=== PATIENT | female | born 1955 | race Caucasian/White ===

== ENCOUNTER 2018-05-21 12:27 | Emergency (ER) | payer MEDICARE ==
--- NOTE | 2018-05-21 13:00 | ER Document Report ---
ED Medical Screen (RME) - General Chief Complaint: Abdominal Pain Stated Complaint: ABDOMINAL PAIN Time Seen by Provider: 05/21/18 12:57 TRAVEL OUTSIDE OF THE [place] IN LAST 30 DAYS: No - HPI Notes: 05/21/18 12:57 Patient is a 62-year-old female with a history of hypertension, cholecystectomy, partial hysterectomy (ovaries remain), ovarian cysts, diverticulosis who presents the emergency department complaining of right lower quadrant abdominal pain. She was seen at urgent care and she was sent here as they her unsure of ovarian cyst versus appendicitis. Patient states that this pain has been ongoin g for the past week and is described as a mild sharp pain. The pain does not radiate. She is eating and drinking without difficulty. She is urinating normally. No vaginal discharge, odor, or bleeding. Denies FREITAS, fever, neck pain, URI, CP, SOB, vomiting, or rash. I have treated and performed a rapid initial assessment of this patient. A comprehensive ED assessment and evaluation of the patient, analysis of test results and completion of medical decision making process will be conducted by additional ED providers. Will defer imaging to next provider that can more thoroughly abd eval. PHYSICAL EXAMINATION: GENERAL: Well-appearing, well-nourished and in no acute distress. A&Ox4. Answers questions appropriately. LUNGS: Breath sounds clear to auscultation bilaterally and equal. No wheezes rales or rhonchi. HEART: Regular rate and rhythm without murmurs, rubs, gallops. ABDOMEN: Soft, nondistended abdomen. No guarding, no rebound. Normal bowel sounds present. No CVA tenderness bilaterally. + mild tenderness rt lower abd (cannot elicit thorough abd exam w/o table, however). Extremities: No cyanosis, clubbing, or edema b/l. NEUROLOGICAL: Normal speech, normal gait. PSYCH: Normal mood, normal affect. Physical Exam - Vital signs Vitals: Temp Pulse Resp BP Pulse Ox 98.1 F 81 16 128/77 H 98 05/21/18 12:38 05/21/18 12:38 05/21/18 12:38 05/21/18 12:38 05/21/18 12:38 Course - Vital Signs Vital signs: Temp Pulse Resp BP Pulse Ox 98.1 F 81 16 128/77 H 98 05/21/18 12:38 05/21/18 12:38 05/21/18 12:38 05/21/18 12:38 05/21/18 12:38
[2018-05-21 13:28] LABS: APPEARANCE,URINE CLEAR; BILIRUBIN,URINE NEGATIVE (NEGATIVE); COLOR,URINE YELLOW; GLUCOSE, URINE NEGATIVE (NEGATIVE); KETONES,URINE NEGATIVE (NEGATIVE); LEUKOCYTE ESTERASE,URINE NEGATIVE (NEGATIVE); NITRITE,URINE NEGATIVE (NEGATIVE); PROTEIN,URINE NEGATIVE (NEGATIVE); URINE SPECIFIC GRAVITY 1.018; UROBILINOGEN,URINE NEGATIVE mg/dL (<2.0)
[2018-05-21 14:47] LABS: ABSOLUTE EOSINOPHILS # (AUTO) 0.1 10^3/uL (0.0-0.6); ABSOLUTE LYMPHOCYTES (AUTO) 1.9 10^3/uL (0.5-4.7); ABSOLUTE MONOCYTES (AUTO) 0.6 10^3/uL (0.1-1.4); ABSOLUTE NEUT (AUTO) 5.4 10^3/uL (1.7-8.2); BASOPHILS % (AUTO) 0.6 % (0-2); EOSINOPHILS % (AUTO) 1.4 % (0-6); HEMATOCRIT 41.7 % (36.0-47.0); HEMOGLOBIN 14.3 g/dL (12.0-15.5); LYMPHOCYTES % (AUTO) 23.2 % (13-45); MEAN CORPUSCULAR HEMOGLOBIN 29.9 pg (27.0-33.4); MEAN CORPUSCULAR HGB CONC 34.4 g/dL (32.0-36.0); MEAN CORPUSCULAR VOLUME 87 fl (80-97); MONOCYTES % (AUTO) 7.7 % (3-13); PLATELET COUNT 255 10^3/uL (150-450); RED CELL DISTRIBUTION WIDTH 13.4 % (11.5-14.0); SEGMENTED NEUTROPHILS % (AUTO) 67.1 % (42-78); TOTAL CELLS COUNTED % (AUTO) 100 %
[2018-05-21 15:08] LABS: ALANINE AMINOTRANSFERASE 40 U/L (9-52); ALBUMIN 4.5 g/dL (3.5-5.0); ALKALINE PHOSPHATASE 65 U/L (38-126); ANION GAP 8 (5-19); ASPARTATE AMINO TRANSFERASE 41 U/L (14-36); BILIRUBIN,DIRECT 0.5 mg/dL (0.0-0.4); BILIRUBIN,TOTAL 0.9 mg/dL (0.2-1.3); BLOOD UREA NITROGEN 19 mg/dL (7-20); CALCIUM 10.1 mg/dL (8.4-10.2); CARBON DIOXIDE 28 mmol/L (22-30); CHLORIDE 107 mmol/L (98-107); GLUCOSE 86 mg/dL (75-110); POTASSIUM 3.9 mmol/L (3.6-5.0); SODIUM 142.7 mmol/L (137-145); TOTAL PROTEIN 7.9 g/dL (6.3-8.2)
--- NOTE | 2018-05-21 15:40 | ER Document Report ---
ED General - General Chief Complaint: Abdominal Pain Stated Complaint: ABDOMINAL PAIN Time Seen by Provider: 05/21/18 12:57 TRAVEL OUTSIDE OF THE [place] IN LAST 30 DAYS: No - HPI Notes: Patient is a 62-year-old female who presents to the emergency department for evaluation of abdominal pain. Is been present for about a week. It waxes and wanes in severity never completely goes away. She states she has had some nausea but no emesis. She remarks mildly diminished appetite. She has had some loose bowel movements. She states it feels somewhat similar to her diverticulitis, but she usually gets that on the left side. She denies any dysuria or hematuria. No vaginal discharge. No vaginal bleeding. No known fevers. Past Medical History - General Information source: Patient - Social History Smoking Status: Never Smoker Chew tobacco use (# tins/day): No Frequency of alcohol use: None Drug Abuse: None Family History: Reviewed & Not Pertinent Patient has suicidal ideation: No Patient has homicidal ideation: No - Past Medical History Cardiac Medical History: Reports: Hx Hypertension Renal/ Medical History: Denies: Hx Peritoneal Dialysis GI Medical History: Reports: Hx Gastroesophageal Reflux Disease Past Surgical History: Reports: Hx Cholecystectomy, Hx Hysterectomy Review of Systems - Review of Systems Constitutional: Malaise EENT: No symptoms reported Cardiovascular: No symptoms reported Respiratory: No symptoms reported Gastrointestinal: No symptoms reported, See HPI Genitourinary: No symptoms reported Female Genitourinary: No symptoms reported Musculoskeletal: No symptoms reported Skin: No symptoms reported Neurological/Psychological: No symptoms reported Physical Exam - Vital signs Vitals: Temp Pulse Resp BP Pulse Ox 98.1 F 81 16 128/77 H 98 05/21/18 12:38 05/21/18 12:38 05/21/18 12:38 05/21/18 12:38 05/21/18 12:38 - Notes Notes: Vital signs reviewed, please refer to chart. Patient is normocephalic, atraumatic. Pupils equal round, reactive to light. Neck is supple without meningismus. Heart is regular rate and rhythm. Lungs are clear to auscultation bilaterally. Abdomen is soft, with moderate right lower quadrant tenderness. No pelvic tenderness. No rebound or guarding. Negative Rovsing's. Extremities without cyanosis, clubbing, edema. Peripheral pulses are equal. Skin is warm and dry. Patient is awake, alert, neurological exam is nonfocal. Course - Re-evaluation Re-evalutation: 05/21/18 15:39 Patient presents to the emergency department for evaluation. Her pain does appear to originate more from the intestines rather than the pelvic organs. She is moderate tenderness. This combined with nausea does have me somewhat concerned for the possibility of appendicitis. Certainly diverticulitis remains on the list, but it is unlikely given this location. Laboratory investigations were ordered and found to be largely unremarkable. Oral and IV contrast CT of the abdomen and pelvis was ordered, patient is pending that exam. We will continue to follow. 05/21/18 18:08 Serial abdominal exams performed. She is tender still, but certainly nonsurgical. CT scan of the abdomen pelvis failed to reveal any acute findings. She already knew about the left ovarian cyst, and this is the opposite side of her symptoms. She has had a colonoscopy, states she believed it to be about 3 y ears ago. At this point I recommend she follow-up with gastroenterology. She understands that if she develops any worsening or new concerning symptoms of any sort, she needs to return to the emergency department for further evaluation. - Vital Signs Vital signs: Temp Pulse Resp BP Pulse Ox 98.1 F 76 18 124/73 98 05/21/18 16:43 05/21/18 16:43 05/21/18 16:43 05/21/18 16:43 05/21/18 16:43 - Laboratory Result Diagrams: 05/21/18 14:17 05/21/18 14:17 Laboratory results interpreted by me: 05/21/18 14:17 Direct Bilirubin 0.5 H AST 41 H - Diagnostic Test Radiology reviewed: Reports reviewed - Ovarian cyst on the left, otherwise no acute findings. Discharge - Discharge Clinical Impression: Right lower quadrant abdominal pain Condition: Stable Disposition: HOME, SELF-CARE Instructions: Abdominal Pain ([facility]) Additional Instructions: No clear reason was found for your abdominal pain today. Follow-up with your primary care physician next week, and consider follow-up with gastroenterology. Return to the emergency department with worsening or new concerning symptoms of any sort.
--- NOTE | 2018-05-21 17:37 | RADIOLOGY REPORT (SQ) ---
EXAM DESCRIPTION: CT ABD/PELVIS WITH IV ORAL COMPLETED DATE/TIME: 05/21/2018 5:24 pm REASON FOR STUDY: RLQ pain COMPARISON: None. TECHNIQUE: CT scan of the abdomen and pelvis performed with intravenous and oral contrast using juve radha scanning technique with dynamic intravenous contrast injection. Images reviewed with lung, soft t issue, and bone windows. Reconstructed coronal and sagittal MPR images reviewed. Delayed images for e valuation of the urinary system also acquired. All images stored on PACS. All CT scanners at this facility use dose modulation, iterative reconstruction, and/or weight based d osing when appropriate to reduce radiation dose to as low as reasonably achievable (ALARA). [facility]: Dose Right [facility]: CareDose [facility]: Dose Right [facility]: Teradose 4D [facility]: [employer] CONTRAST TYPE AND DOSE: contrast/concentration: Isovue 350.00 mg/ml; Total Contrast Delivered: 67.0 ml; Total Saline Delivered: 65.0 ml RENAL FUNCTION: GFR > 60. RADIATION DOSE: CT Rad equipment meets quality standard of care and radiation dose reduction techniq ues were employed. CTDIvol: 4.9 - 6.2 mGy. DLP: 570 mGy-cm. . LIMITATIONS: None. FINDINGS: LOWER CHEST: No significant findings. No nodules or infiltrates. LIVER: Normal size. No masses. No dilated ducts. SPLEEN: Normal size. No focal lesions. PANCREAS: No masses. No significant calcifications. No adjacent inflammation or peripancreatic fluid collections. Pancreatic duct not dilated. GALLBLADDER: Surgically absent. ADRENAL GLANDS: No significant masses or asymmetry. RIGHT KIDNEY AND URETER: No solid masses. No significant calcifications. No hydronephrosis or hyd roureter. LEFT KIDNEY AND URETER: No solid masses. No significant calcifications. No hydronephrosis or hydr oureter. AORTA AND VESSELS: No aneurysm. No dissection. Renal arteries, SMA, celiac without stenosis. RETROPERITONEUM: No retroperitoneal adenopathy, hemorrhage or masses. BOWEL AND PERITONEAL CAVITY: No obstruction. No visualized masses. No free fluid. No inflammatory ch anges or thickening of bowel wall. APPENDIX: Not visualized. PELVIS: 1.6 cm simple cysts in left ovary. Normal bladder. ABDOMINAL WALL: No masses. No hernias. BONES: No significant or acute findings. OTHER: No other significant finding. IMPRESSION: NO SIGNIFICANT OR ACUTE FINDINGS IN THE ABDOMEN OR PELVIS. COMMENT: Followup of asymptomatic adnexal cysts found on CT or MRI in postmenopausal patients Late postmenopausal (>55 yo) *Benign cyst ? 3 cm: No followup *Note: If cyst is clinically symptomatic or otherwise concerning, other followup may be necessary. Menopause is considered age 50 by radiologist unless date of last period is known. Based on Managing Incidental Findings on Abdominal and Pelvic CT and MRI, Part 1: White Paper of the ACR Incidental Fi ndings Committee II on Adnexal Findings J Am Alon Radiol 2013;10:675-681. TECHNICAL DOCUMENTATION: JOB ID: [id number] Quality ID # [id number]: Final reports with documentation of one or more dose reduction techniques (e.g., Au tomated exposure control, adjustment of the mA and/or kV according to patient size, use of iterative reconstruction technique) 2010 [employer]- All Rights Reserved Reading location - IP/workstation name: [email or web address]
[2018-05-21 19:03] VITALS: BP 120/78
== END 2018-05-21 19:04 | disposition home or self-care (01) ==
LOC: ER 12:27
DX: R10.31 Right lower quadrant pain (principal); I10 Essential (primary) hypertension; R53.81 Other malaise; Z90.710 Acquired absence of both cervix and uterus; Z90.49 Acquired absence of other specified parts of digestive tract
CPT/HCPCS: 36415; 74177; 80053; 81001; 85025; 87086; 87088; 87186; 99284